=== PATIENT | male | born 1965 | race Caucasian/White ===

== ENCOUNTER 2017-06-02 09:47 | Emergency (ER) | payer SELFPAY ==
[~2017-06-02] VITALS: Ht 157.5 cm; Wt 60.0 kg
[~2017-06-02 09:47] MED LIST: CLEO300C2 PO; IBUP-232 PO; LORC10TA PO; SULF-154 PO; TRIA.1%T TOP
[2017-06-02 10:03] VITALS: BP 156/70; PULSE 106; RESP 16; TEMP 98.1; O2SAT 98
[2017-06-02] MEDS ORDERED: BACT800T5 PO (10:21)
[2017-06-02] MEDS ORDERED: CLIN150C14 PO (10:21)
--- NOTE | 2017-06-02 10:21 | PD ---
HPI Chief Complaint: Skin Problem Time Seen by Provider: 10:15 Travel History International Travel<30 days: No Contact w/Intl Traveler<30days: No Traveled to known affect area: No History of Present Illness HPI 51-year-old male complains of infected lesions in the left leg. Patient states that the symptoms started several days ago. Patient does not recall any specific injury to the left leg. Patient denies any fever chills. Patient has been using peroxide care to the wounds. Patient is up-to-date with TD booster. PFSH Past Medical History Asthma: Yes Diminished Hearing: No Social History Alcohol Use: Yes Tobacco Use: Yes Substance Use: No Allergies-Medications (Allergen,Severity, Reaction): Coded Allergies: No Known Allergies (Verified Adverse Reaction, Unknown, 06/02/17) Reported Meds & Prescriptions Reported Meds & Active Scripts Active Lorcet 10650 (Acetaminophen/Hydrocodone Bitart) Tab 0.5-1 Tab PO Q4-6H PRN PAIN FOR PAIN Cleocin (Clindamycin HCl) 300 Mg Cap 1 Tab PO QID 10 Days Aristocort (Triamcinolone Acetonide) 0.1 % Cr 0.1 % TOP BID Septra Ds (Trimethoprim/Sulfamethoxazole) Tab 1 Tab PO BID Ibuprofen 600 Mg Tab 600 Mg PO Q8H PRN Review of Systems General / Constitutional: No: Fever Eyes: No: Visual changes HENT: No: Headaches Cardiovascular: No: Chest Pain or Discomfort Respiratory: No: Shortness of Breath Gastrointestinal: No: Abdominal Pain Genitourinary: No: Dysuria Musculoskeletal: No: Pain Skin: No Rash Neurologic: No: Weakness Psychiatric: No: Depression Endocrine: No: Polydipsia Hematologic/Lymphatic: No: Easy Bruising Physical Exam Narrative GENERAL: Well-nourished, well-developed patient. SKIN: Focused skin assessment warm/dry. HEAD: Normocephalic. EYES: No scleral icterus. No injection or drainage. NECK: Supple, trachea midline. No JVD or lymphadenopathy. CARDIOVASCULAR: Regular rate and rhythm without murmurs, gallops, or rubs. RESPIRATORY: Breath sounds equal bilaterally. No accessory muscle use. GASTROINTESTINAL: Abdomen soft, non-tender, nondistended. MUSCULOSKELETAL: No cyanosis, or edema. BACK: Nontender without obvious deformity. No CVA tenderness. Patient has several ulcerative lesions lateral aspect left lower leg with redness swelling associated with that. No discharge. No induration. Data Data Last Documented VS Vital Signs Date Time Temp Pulse Resp B/P (MAP) Pulse Ox O2 Delivery O2 Flow Rate FiO2 06/02/17 10:03 98.1 106 16 156/70 (98) 98 Room Air MDM Medical Decision Making Medical Screen Exam Complete: Yes Emergency Medical Condition: Yes Differential Diagnosis Differential diagnosis including abrasion, cellulitis, abscess. Narrative Course 51-year-old male with infected lesions left lower leg. Diagnosis Primary Impression: Left leg cellulitis Patient Instructions: General Instructions Med/Other Pt SpecificInfo: Prescription(s) given Scripts Clindamycin (Clindamycin) 150 Mg Cap 300 MG PO QID for Infection, #80 CAP 0 Refills Prov: Arben Holman MD 06/02/17 Sulfamethoxazole-Trimethoprim (Bactrim DS) 800-160 Mg Tab 1 TAB PO BID for Infection, #20 TAB 0 Refills Prov: Arben Holman MD 06/02/17 Disposition: 01 DISCHARGE HOME Condition: Stable Arben Holman MD Jun 02, 2017 10:21
== END 2017-06-02 11:20 | disposition home or self-care (01) ==
LOC: NEPD 09:47
DX: L03.116 Cellulitis of left lower limb (principal); J45.909 Unspecified asthma, uncomplicated; Z72.0 Tobacco use; Z79.899 Other long term (current) drug therapy
CPT/HCPCS: 99283